=== PATIENT | female | born 1965 | race Caucasian/White ===

== ENCOUNTER 2018-02-05 17:26 | Emergency (ER) | payer MEDICAID, SELFPAY ==
[2018-02-05 17:28] VITALS: BP 121/80; PULSE 69; RESP 18; TEMP 37; O2SAT 97; BMI 22.3
[2018-02-05 18:16] LABS: Absolute Lymphocyte Count 2.36 X10^3/ul (0.83-4.51); Absolute Neutrophil Count 3.1 X10^3/uL (2.0-7.7); Basophil# 0.05 X10^3/uL; Basophil% 0.8 % (0-1); Eosinophil# 0.26 X10^3/uL; Eosinophils% 4.1 % (0-5); Hematocrit 47.6 % (37-47); Hemoglobin 16.6 g/dl (12.0-15.0); Lymphocyte # 2.36 X10^3/ul (4.0); Lymphocyte % 37.4 % (19-41); Mean Corp Hgb Conc 34.9 g/gl (32-36); Mean Corpuscular Hgb 31.4 pg (27.0-32.0); Mean Corpuscular Volume 90.2 fL (81-99); Mean Platelet Vol. 9.3 fl (6.2-12.0); Monocyte# 0.51 X10^3/uL; Monocyte% 8.1 % (0-10); Neutrophil # 3.12 X10^3/uL (2.7-7.7); Neutrophil % 49.4 % (47-70); Platelet Count 262 K/mm3 (150-450); RBC Distribution Width CV 13.9 % (11.6-14.6); RBC Distribution Width SD 46.1 fl (35.1-43.9); Red Blood Count 5.28 M/mm3 (4.2-5.4); White Blood Count 6.3 K/mm3 (4.4-11.0)
[2018-02-05 18:25] LABS: POSITIVE COUNT NO; POSITIVE DIFFERENTIAL NO; POSITIVE MORPHOLOGY NO
[2018-02-05 18:30] LABS: Anion Gap 5 (5-15); BUN 11 mg/dL (7-18); BUN/Creat Ratio 13.1 RATIO (10-20); Chloride 107 mmol/L (98-107); Creatinine, Serum 0.84 mg/dL (0.55-1.02); EST Glomerular Filtration Rate 75 mL/min (>60); Est Glom Filt Rate - Afr Amer 91 mL/min (>60); Estimated Creatinine Clearance 60.55 ml/min; Glucose 87 mg/dL (74-106); Potassium 3.9 mmol/L (3.5-5.1); Sodium Level 140 mmol/L (136-145)
[2018-02-05] MEDS: 0.9% Normal Saline 1,000 ML 125 ML IV (18:36)
[2018-02-05 18:41] VITALS: BP 103/70; BP 116/70; BP 123/76; PULSE 63; PULSE 64; PULSE 65
--- NOTE | 2018-02-05 19:41 | ED.VISSUMM ---
- ER Visit Summary Date of Service: 02/05/18 Chief Complaint: [Rectal bleeding] History of Present Illness: The patient is a 52 F [presents to the emergency department with rectal bleeding that started 3 days ago. Patient's had about 2 episodes per day of bright red blood per rectum that looks like a menstrual period. Patient denies any abdominal pain. Patient denies fever. Patient states that she felt somewhat lightheaded today and became concerned. Patient's only had one episode of bleeding today. Patient states that she has never had a colonoscopy. There is no family history of colon cancer.] Physical Examination: [HEENT-PERRLA, EOMI. Cranial nerves II through XII grossly intact. TMs clear. Mucous membranes moist. No adenopathy. Cardiovascular-regular rate and rhythm without murmur or ectopy Lungs-clear to auscultation, chest wall stable without crepitus or subcu emphysema Abdomen-normoactive bowel sounds, soft, nontender, no rebound or rigidity, no peritoneal signs. Rectal exam-no fissures or hemorrhoids noted. No rectal masses palpated. There was no stool in the rectal vault however Hemoccult tested positive. Extremities-intact ?4, normal range of motion, normal pulses, atraumatic] Test Results: [CBC with differential obtained showed a white count of 6.3, hemoglobin 16.6, hematocrit 47.6, platelets 262. Chemistries unremarkable. Orthostatic vital signs were negative] Emergency Department Course and Treatment: [Patient received IV fluid] Treatment Plan: [Patient case was discussed with Dr. Ksenia Nicole who agreed to see the patient in follow-up and schedule colonoscopy.] Disposition: [Discharged home in stable condition. Patient advised to return if persistent or heavy bleeding. If patient should get lightheaded or dizzy. Fever, or condition should worsen in any way.] Impression: [Rectal bleeding lower-stable] This note was generated with [employer] dictation software. It may contain incorrect words, spelling, and punctuation that were not noted in review of the chart prior to signing ED Disposition - Plan for ED Patient: Chief Complaint: GI Bleed Referrals: Care Physician,No Primary [Primary Care Provider] -
--- NOTE | 2018-02-05 19:48 | ED.DCSUM_ITS ---
- ER Visit Summary Date of Service: 02/05/18 Chief Complaint: [Rectal bleeding] History of Present Illness: The patient is a 52 F [presents to the emergency department with rectal bleeding that started 3 days ago. Patient's had about 2 episodes per day of bright red blood per rectum that looks like a menstrual period. Patient denies any abdominal pain. Patient denies fever. Patient states that she felt somewhat lightheaded today and became concerned. Patient' s only had one episode of bleeding today. Patient states that she has never had a colonoscopy. There is no family history of colon cancer.] Physical Examination: [HEENT-PERRLA, EOMI. Cranial nerves II through XII grossly intact. TMs clear. Mucous membranes moist. No adenopathy. Cardiovascular-regular rate and rhythm without murmur or ectopy Lungs-clear to auscultation, chest wall stable without crepitus or subcu emphysema Abdomen-normoactive bowel sounds, soft, nontender, no rebound or rigidity, no peritoneal signs. Rectal exam-no fissures or hemorrhoids noted. No rectal masses palpated. There was no stool in the rectal vault however Hemoccult tested positive. Extremities-intact ?4, normal range of motion, normal pulses, atraumatic] Test Results: [CBC with differential obtained showed a white count of 6.3, hemoglobin 16.6, hematocrit 47.6, platelets 262. Chemistries unremarkable. Orthostatic vital signs were negative] Emergency Department Course and Treatment: [Patient received IV fluid] Treatment Plan: [Patient case was discussed with Dr. Ksenia Nicole who agreed to see the patient in follow-up and schedule colonoscopy.] Disposition: [Discharged home in stable condition. Patient advised to return if persistent or heavy bleeding. If patient should get lightheaded or dizzy. Fever, or condition should worsen in any way.] Impression: [Rectal bleeding lower-stable] This note was generated with [employer] dictation software. It may contain incorrect words, spelling, and punctuation that were not noted in review of the chart prior to signing ED Disposition - Plan for ED Patient: Chief Complaint: GI Bleed Referrals: Care Physician,No Primary [Primary Care Provider] -
--- NOTE | 2018-02-05 19:48 | ED.DEP ---
ED Disposition - Plan for ED Patient: Chief Complaint: GI Bleed Instructions: ED Hematochezia Stable Referrals: Care Physician,No Primary [Primary Care Provider] - Ksenia Nicole MD [STAFF PHYSICIAN] - 3-5 Days
[2018-02-05 19:59] VITALS: BP 119/78; PULSE 61; RESP 16; O2SAT 99
== END 2018-02-05 20:00 | disposition home or self-care (01) ==
PROVIDERS: Emergency Provider Emergency Medicine
DX: K62.5 Hemorrhage of anus and rectum (principal); Z72.0 Tobacco use
CPT/HCPCS: 80048; 82274; 85025; 96360; 99285; J7030; A4216

== ENCOUNTER 2020-01-24 21:48 | Emergency (ER) | payer MEDICAID, SELFPAY ==
[2020-01-24 21:48] VITALS: BP 149/91; PULSE 89; RESP 18; TEMP 36.4; O2SAT 97; BMI 23.6
[2020-01-24 21:58] VITALS: PULSE 88; RESP 21; O2SAT 98
--- NOTE | 2020-01-24 22:01 | ED.DCSUM_ITS ---
History of Present Illness Chief Complaint: Chest Pain Informant: Patient Onset: Weeks - 1 week per my review/history and longer per triage. Context: Sudden Onset Timing: Intermittent Quality: Sharp stabbing left anterior chest that is intermittent and occurs at rest Location: Left anterior chest Current Severity: - - None Maximum Severity: Moderate Worsened by: Nothing Relieved by: Nothing Associated Symptoms: No nausea, vomiting, diaphoresis or dyspnea. Reports fee ling flushed Narrative: Patient is a 54-year-old woman has not seen a physician in 20 years who presents to the emergency department with left-sided intermittent chest pain that started 1 to greater than 1 week ago. Intermittent sharp stabbing pain that has occurred at rest. Not associated with eating, change in position or activity. Does report feeling flushed and then has tremors. She denies diaphoresis, shortness of breath or nausea or vomiting. She states she feels she cannot get a complete breath when she has the pain. She denies history of VTE. She denies leg pain, swelling discoloration. She denies black or maroon stool. She is a smoker. She reports having pneumonia in the past. The pain is not pleuritic. She does not have diagnosis of COPD. She has no risk factors. Prior similar symptoms: No Recent Illness/Hospitalization: No - Past Medical History (1) Tobacco use Status: Acute Past Medical History - Allergies and Home Meds Allergies/Adverse Reactions: Allergies No Known Allergies Allergy (Verified 01/24/20 22:03) Primary Care Physician: Care Physician,No Primary [Primary Care Provider] - Prior records reviewed: No Past Medical History: None Surgical History: - - Tubal ligation Lives: Alone Smoking Status: Current every day smoker Alcohol: Rare Drugs: None Review of Systems General: Denies: Chills, Fever, Sweats Eyes: Denies: Visual changes - bilaterally, Blurred Vision - bilaterally, Diplopia ENT: Denies: Rhinorrhea, Sore throat Cardiovascular: Reports: Chest pain. Denies: Palpitations, Heart racing Respiratory: Denies: Dyspnea, Cough, Sputum, Dyspnea on exertion, Orthopnea, Paroxysmal nocturnal dyspnea, -, - Gastrointestinal: Denies: Abdominal pain, Nausea, Vomiting, Diarrhea, Melena, Hematochezia Genitourinary: Denies: Dysuria, Hematuria, Frequency Musculoskeletal: Denies: Myalgias, Arthralgias, Neck pain, Back pain, Extremity Pain Skin: Denies: Rash, Wounds Neurological: Denies: Headache, Weakness, Numbness Hematologic: Denies: Easy bruising, Easy bleeding Physical Exam Vital Signs/Narrative: Vital Signs Temp Pulse Resp BP Pulse Ox 01/24/20 21:58 88 21 H 98 01/24/20 21:48 97.5 F L 89 18 149/91 H 97 Inital Vital Signs reviewed: Yes General: Well nourished, Well developed, No Acute Distress Head: Normocephalic, Atraumatic Eyes: Perrl, EOMI ENT: Moist mucous membranes, No rhinorrhea Neck: Supple, Nontender, No lymphadenopathy, No JVD Cardiovascular: Regular rate, Regular rhythm, No murmurs, Normal S1, Normal S2 Respiratory: No distress, CTA bilaterally, Chest nontender Abdomen: Soft, Nontender, Nondistended, Normal bowel sounds Back: Nontender, Normal Inspection. Negative for: CVA tenderness, Spinal tenderness Extremities: Nontender, No edema, - - There is no asymmetry, swelling, discoloration, leg vein distention, palpable cords or tenderness along the distribution of the deep venous system. Skin: Normal color, No rash, No Trauma. Negative for: Cyanosis, Diaphoresis, Jaundice Neurological: Alert, Oriented x3, Cranial nerves II-XII grossly intact, Normal Strength, Normal Sensation, Normal DTR, Normal Gait Psychological: Normal affect, Normal Mood Diagnostic/Tx/Re-eval Chest X-Ray - ED: 2 View, Read by ED Physician, Normal, Heart, Mediastinum, Bony Structures, No Acute Disease, Chronic Changes, - - Chronic interstitial changes noted. There is no evidence of infiltrate, effusion or pneumothorax. X-ray was interpreted by me at 2212. Impressions Chest X-Ray 01/24/20 22:06 IMPRESSION: Normal x-ray examination of the chest. Electronically Signed: Willem Chang MD at 22:20 EDT , Service support , 01/24/20 22:06 Chest PA and Lateral [RAD] Stat Laboratory Results 01/24/20 01/24/20 21:55 21:55 WBC 7.3 RBC 5.29 Hgb 16.1 H Hct 47.4 H MCV 89.6 MCH 30.4 MCHC 34.0 RDW Std Deviation 43.5 RDW Coeff of Macario 13.2 Plt Count 287 MPV 9.4 Immature Gran % (Auto) 0.100 Neut % (Auto) 46.7 L Lymph % (Auto) 40.2 [place]ickory % (Auto) 8.9 Eos % (Auto) 3.0 Baso % (Auto) 1.1 H Absolute Neuts (auto) 3.4 Absolute Lymphs (auto) 2.94 Nucleated RBC % 0 Sodium 140 Potassium 4.0 Chloride 106 Carbon Dioxide 29.0 Anion Gap 5 BUN 13 Creatinine 0.86 Estim Creat Clear Calc 57.77 Est GFR (MDRD) Af Amer 88 Est GFR (MDRD) Non-Af 73 BUN/Creatinine Ratio 15.1 Glucose 105 Calcium 9.2 Troponin I < 0.015 Patient's heart score is 2. Her work-up is negative. She has a atypical presentation for chest pain. Since she has a heart score of 2 and work-up is negative will discharge to home to follow-up with Dr. Coombs who she was assigned to since she is insured without physician. - EKG Initial EKG Interpretation: Sinus Rhythm - AG was performed at 2202. EKG is normal with a normal sinus rhythm and a ventricular rate of 80. AR interval is 136 ms. QRS duration is 100 ms. QT duration 370 ms. [place] is normal. There is artifact because patient is unable to relax and is anxious according to the respiratory therapist who performed EKG. The EKG is otherwise normal. - Medical Decision Making Patient with intermittent left chest pain. Atypical for cardiac. This may represent pulmonary etiology, atypical cardiac, reflux, hiatal hernia, malignan cy. Will obtain EKG, chest x-ray and appropriate blood work. No treatment was initiated since patient is presently pain-free. Patient was informed the cause of her pain is unknown. She was informed that based on history physical and work-up the significant things that one needs to rule out have been ruled out. ED Disposition - Plan for ED Patient: Disposition: Home or Assisted Living Diagnosis: Left-sided chest pain, Tobacco use Instructions: ED Chest Pain NonCardiac Referrals: Care Physician,No Primary [Primary Care Provider] - Fernando Coombs MD [STAFF PHYSICIAN] - 3-5 Days
--- NOTE | 2020-01-24 22:01 | EKG12_ITS ---
Test Reason : CP Blood Pressure : / mmHG Vent. Rate : 080 BPM Atrial Rate : 080 BPM P-R Int : 136 ms QRS Dur : 100 ms QT Int : 370 ms P-R-T Axes : 017 -07 007 degrees QTc Int : 426 ms Normal sinus rhythm Normal ECG Confirmed by BELLE ALMODOVAR, GLADYS ([id number]), multimedia editor RUI PUTNAM ([id number]) on 01/27/2020 3:59:49 PM Referred By: ROLY Confirmed By:GLADYS ODONNELL MD
[2020-01-24 22:02] VITALS: O2SAT 98
--- NOTE | 2020-01-24 22:06 | RAD_ITS ---
STUDY: X-RAY CHEST REASON FOR EXAM: Female, 54 years old. CHEST PAIN WITH SOB TECHNIQUE: PA and lateral COMPARISON: Jan 20 2013 FINDINGS: The lungs are clear and expanded. There is no demonstrated pleural abnormality. Normal size heart. Normal mediastinum and consuelo. Normal visualized pulmonary arteries. Normal visualized aortic arch and descending thoracic aorta. Normal visualized thoracic spine. Normal visualized ribs, clavicles, and shoulders. There is no demonstrated abnormality of the visualized soft tissue structures of the upper abdomen. RAD/Chest PA and Lateral IMPRESSION: Normal x-ray examination of the chest. Electronically Signed: Willem Chang MD at 22:20 EDT , Service support ,
[2020-01-24 22:12] LABS: Absolute Lymphocyte Count 2.94 X10^3/uL (0.83-4.51); Absolute Neutrophil Count 3.4 X10^3/uL (2.0-7.7); Basophil# 0.08 X10^3/uL; Basophil% 1.1 % (0-1); Eosinophil# 0.22 X10^3/uL; Hematocrit 47.4 % (37-47); Hemoglobin 16.1 g/dL (12.0-15.0); Lymphocyte # 2.94 X10^3/ul (4.0); Lymphocyte % 40.2 % (19-41); Mean Corpuscular Hgb 30.4 pg (27.0-32.0); Mean Corpuscular Volume 89.6 fL (81-99); Mean Platelet Vol. 9.4 fl (6.2-12.0); Monocyte# 0.65 X10^3/uL; Monocyte% 8.9 % (0-10); NRBC Flagged by Analyzer 0 % (0-5); Neutrophil # 3.41 X10^3/uL (2.7-7.7); Neutrophil % 46.7 % (47-70); Platelet Count 287 K/mm3 (150-450); RBC Distribution Width CV 13.2 % (11.6-14.6); RBC Distribution Width SD 43.5 fl (35.1-43.9); Red Blood Count 5.29 M/mm3 (4.2-5.4); White Blood Count 7.3 K/mm3 (4.4-11.0)
[2020-01-24 22:31] LABS: Anion Gap 5 (5-15); BUN 13 mg/dL (7-18); BUN/Creat Ratio 15.1 RATIO (10-20); Calcium,Total 9.2 mg/dL (8.5-10.1); Chloride 106 mmol/L (98-107); Creatinine, Serum 0.86 mg/dL (0.55-1.02); EST Glomerular Filtration Rate 73 mL/min (>60); Est Glom Filt Rate - Afr Amer 88 mL/min (>60); Estimated Creatinine Clearance 57.77 ml/min; Glucose 105 mg/dL (74-106); Sodium Level 140 mmol/L (136-145)
[2020-01-24 22:42] VITALS: BP 143/70; PULSE 74; RESP 16; O2SAT 97
== END 2020-01-24 22:42 | disposition home or self-care (01) ==
PROVIDERS: Emergency Provider Emergency Medicine
DX: R07.9 Chest pain, unspecified (principal); F17.200 Nicotine dependence, unspecified, uncomplicated
CPT/HCPCS: 71046; 80048; 84484; 85025; 93005; 99285; A4216

== ENCOUNTER 2020-04-27 16:01 | Emergency (ER) | payer MEDICAID, SELFPAY ==
[2020-04-27 16:03] VITALS: BP 138/90; PULSE 79; RESP 17; TEMP 37.3; O2SAT 95; BMI 22.8
--- NOTE | 2020-04-27 17:18 | ED.VIS.GEN ---
History of Present Illness Chief Complaint: Fever Informant: Patient Narrative: D4-year-old female presenting with multiple complaints. She states that she has been having intermittent chest pain that is sharp in nature for a couple of months. She was seen and evaluated for this a few months ago and stated that everything was normal. Today she also complains that she has had subjective fevers and chills at home. She does complain of bilateral ear pain and drainage from the right ear. She was trying to seek out a physician today to address the issue with the ears and mentioned her chest pain and she was sent to the ER. Patient states that her only is PTSD, but admits that she has not been to a primary physician in many years. Past Medical History - Allergies and Home Meds Allergies/Adverse Reactions: Allergies No Known Allergies Allergy (Verified 04/27/20 16:02) Primary Care Physician: Nestor Joe MD [STAFF PHYSICIAN] - Care Physician,No Primary [Primary Care Provider] - Prior records reviewed: Yes Past Medical History: - - PTSD Surgical History: - - Tubal ligation Smoking Status: Current every day smoker Alcohol: None Drugs: None Review of Systems General: Reports: Chills, Fever Eyes: Denies: Visual changes - bilaterally, Diplopia ENT: Reports: - - Tiny black dots under her tongue. Bilateral ear pain with drainage from the right ear Cardiovascular: Reports: Chest pain Respiratory: Reports: Cough - Chronic smoker's cough unchanged. Denies: Dyspnea Gastrointestinal: Denies: Abdominal pain, Nausea Genitourinary: Denies: Dysuria, Hematuria Musculoskeletal: Reports: Myalgias Skin: Denies: Rash, Abscess Neurological: Denies: Headache Psych: Denies: Depression, Anxiety Physical Exam Vital Signs/Narrative: Vital Signs Temp Pulse Resp BP Pulse Ox 04/27/20 16:03 99.2 F H 79 17 138/90 H 95 Inital Vital Signs reviewed: Yes General: Well nourished, No Acute Distress Head: Normocephalic, Atraumatic Eyes: Perrl, EOMI. Negative for: Scleral icterus ENT: - - Punctate barely visible black dots on the underside of her tongue. These are nontender to palpation. There is erythema of the bilateral external auditory canals with pain with movement of the tragus bilaterally. The right TM is erythematous. There is drainage from the right ear canal. There is no obvious perforation noted. Neck: Supple, Nontender Cardiovascular: Regular rate, Regular rhythm, No murmurs Respiratory: No distress, CTA bilaterally Extremities: Nontender, No edema Skin: Normal color, No rash Neurological: Alert, Oriented x3 Psychological: Normal affect Diagnostic/Tx/Re-eval - Rhythm Strip Rhythm Strip: Sinus Rhythm Rate: 69 - EKG Initial EKG Interpretation: Sinus Rhythm, No Acute Injury Pattern - Medical Decision Making 54-year-old female presenting with multiple complaints she states he really came today because she was concerned that she had an ear infection in the right ear because she said drainage as well as pain in the external auditory canals. On examination she does have drainage from the right ear although I did not identify a perforation. She does have bilateral otitis externa as well. Patient also complained of some intermittent sharp pains in her chest. She states he is previously been seen in the emergency room for these pains. She was trying to get follow-up today with her primary care physician but when she mentioned the pains they sent her to the ER. She has no associated symptoms with these pains. They have not changed. Does not sound cardiac in nature. Her d-dimer is negative. Her labs are within normal limits. Troponin is normal. EKG shows sinus rhythm without signs of ischemia. Chest x-ray is negative. Given that she has a fever she was tested for COVID?19. She will self quarantine, but is given strict return precautions if symptoms worsen.. I do not believe this patient needs repeat labs and EKG. I will treat her otitis media and otitis externa and she can follow-up with her PCP outpatient. Patient amenable to this plan. Patient stable for discharge at this time. Impression: 1. Atypical chest pain 2. Lateral otitis externa 3. Otitis media 4. History of fever 5. Possible exposure to COVID?19 ED Disposition - Plan for ED Patient: Disposition: Home or Assisted Living Instructions: ED Otitis Media Antibiotic Treatment Adult, ED Otitis Externa, ED Chest Pain Atypical Unkn Cause Prescriptions: Amox/Clavulanate Tablet [Augmentin Tablet] 875 mg PO Q12H #20 tab Prescription Printed Ciprofloxacin HCl/Dexameth [Ciprodex Otic Suspension] 4 drp OTIC (EAR) BID 10 Days #2 bottle Prescription Printed Referrals: Care Physician,No Primary [Primary Care Provider] - Nestor Joe MD [STAFF PHYSICIAN] -
--- NOTE | 2020-04-27 17:34 | EKG12_ITS ---
Test Reason : Blood Pressure : / mmHG Vent. Rate : 069 BPM Atrial Rate : 069 BPM P-R Int : 146 ms QRS Dur : 096 ms QT Int : 412 ms P-R-T Axes : 071 015 055 degrees QTc Int : 441 ms Normal sinus rhythm Normal ECG Confirmed by KASSIE ALMODOVAR, JAN ([id number]), pictures editor ANDREY VALDIVIA ([id number]) on 05/05/2020 11:16:29 A M Referred By: RADHA Confirmed By:TERRY FERNANDO MD
[2020-04-27] MEDS: Aspirin 81 MG TAB.CHEW 324 MG PO (17:50)
[2020-04-27] MEDS: 0.9% Normal Saline 1,000 ML 1000 ML IV (17:50)
--- NOTE | 2020-04-27 18:00 | RAD_ITS ---
STUDY: X-RAY CHEST REASON FOR EXAM: Female, 54 years old. PT C/O FEVER, CHILLS, BILATERAL EAR PAIN WITH DRAINAGE, AND SOB TECHNIQUE: Single frontal view of the chest. COMPARISON: 01/20/2013 FINDINGS: The lungs are clear and expanded. There is no demonstrated pleural abnormality. Normal size heart. Normal mediastinum and consuelo. Normal visualized pulmonary arteries. Normal visualized aortic arch and descending thoracic aorta. Normal visualized thoracic spine. Normal visualized ribs, clavicles, and shoulders. There is no demonstrated abnormality of the visualized soft tissue structures of the upper abdomen. RAD/Chest 1 View (Portable) IMPRESSION: Normal x-ray examination of the chest. Electronically Signed: Thor Aldridge MD at 18:21 EDT Tel , Service support ,
[2020-04-27 18:07] LABS: Absolute Neutrophil Count 5.8 X10^3/uL (2.0-7.7); Basophil# 0.09 X10^3/uL; Basophil% 0.9 % (0-1); Eosinophil# 0.17 X10^3/uL; Eosinophils% 1.8 % (0-5); Hematocrit 48.8 % (37-47); Hemoglobin 16.3 g/dL (12.0-15.0); Lymphocyte % 29.3 % (19-41); Mean Corp Hgb Conc 33.4 g/dL (32-36); Mean Corpuscular Hgb 29.9 pg (27.0-32.0); Mean Corpuscular Volume 89.5 fL (81-99); Mean Platelet Vol. 9.1 fl (6.2-12.0); Monocyte# 0.73 X10^3/uL; Monocyte% 7.6 % (0-10); NRBC Flagged by Analyzer 0 % (0-5); Neutrophil # 5.75 X10^3/uL (2.7-7.7); Neutrophil % 60.2 % (47-70); Platelet Count 255 K/mm3 (150-450); RBC Distribution Width CV 13.4 % (11.6-14.6); RBC Distribution Width SD 43.5 fl (35.1-43.9); Red Blood Count 5.45 M/mm3 (4.2-5.4); White Blood Count 9.6 K/mm3 (4.4-11.0)
[2020-04-27 18:23] LABS: D-Dimer Quantitative (DVT/PE) < 0.27 FEU/ug/m (0.27-0.49)
[2020-04-27 18:35] LABS: Anion Gap 3 (5-15); BUN 14 mg/dL (7-18); Chloride 109 mmol/L (98-107); Creatinine, Serum 0.64 mg/dL (0.55-1.02); EST Glomerular Filtration Rate 102 mL/min (>60); Est Glom Filt Rate - Afr Amer 124 mL/min (>60); Estimated Creatinine Clearance 77.63 ml/min; Glucose 103 mg/dL (74-106); Potassium 3.9 mmol/L (3.5-5.1); Sodium Level 138 mmol/L (136-145)
[2020-04-27 19:11] VITALS: BP 136/87; PULSE 73; RESP 16; O2SAT 98
[2020-04-27 19:54] VITALS: BP 136/87; PULSE 73; RESP 16; O2SAT 98
[2020-04-27] MEDS: Amox/Clavulanate 875 MG Tablet PO (20:07)
== END 2020-04-27 20:12 | disposition home or self-care (01) ==
PROVIDERS: Emergency Provider Student in an Organized Health Care Education/Training Program
DX: R07.89 Other chest pain (principal); H60.90 Unspecified otitis externa, unspecified ear; H66.90 Otitis media, unspecified, unspecified ear; F17.200 Nicotine dependence, unspecified, uncomplicated
CPT/HCPCS: 71045; 80048; 84484; 85025; 85379; 93005; 99285; J7030; A4216

== ENCOUNTER 2020-08-16 18:01 | Emergency (ER) | payer MEDICAID, SELFPAY ==
[2020-08-16 18:01] VITALS: BP 132/89; PULSE 91; RESP 18; TEMP 36.4; O2SAT 98; BMI 23.0
[2020-08-16 18:43] VITALS: BP 132/89; PULSE 91; RESP 18; TEMP 36.4; O2SAT 98
--- NOTE | 2020-08-16 19:19 | EKG12_ITS ---
Test Reason : BACK PAIN Blood Pressure : / mmHG Vent. Rate : 071 BPM Atrial Rate : 071 BPM P-R Int : 148 ms QRS Dur : 088 ms QT Int : 396 ms P-R-T Axes : 070 006 059 degrees QTc Int : 430 ms Normal sinus rhythm Normal ECG Confirmed by YAEL ALMODOVAR, MIRNA ([id number]), editorial writer ANDREY VALDIVIA ([id number]) on 08/18/2020 2:08:23 PM Referred By: RADHA Confirmed By:MIRNA CONLEY MD
--- NOTE | 2020-08-16 19:20 | ED.VISSUMM ---
- ER Visit Summary Date of Service: 08/16/20 Chief Complaint: Left thoracic pain History of Present Illness: The patient is a 54 F who presents with left thoracic pain that is gradually gotten worse over the past 5 months. Patient describes the pain is sharp and stabbing. Patient states the pain was localized to her posterior thoracic area on the left. Patient states that recently the pain started radiating to her left arm and around to her left chest. Patient states nothing makes it worse. Patient states that improves with ibuprofen. Patient states it is worse when she first wakes up. Patient states her sister told her that it could be a blood clot and she needs to come to the emergency department to get that checked out. Physical Examination: Vital signs are stable. Patient is afebrile. Patient is in no acute distress. Oral mucosa is pink and moist. Neck is supple. Trachea is midline. There is no JVD noted. Heart was regular rate and rhythm. Lungs are clear but slightly diminished bilaterally. Respiratory effort is limited secondary to pain. There is tenderness over the left lateral chest wall. Abdomen is soft. Bowel sounds are normal. There is no tenderness. There is no rebound or guarding noted. Skin is warm dry. Cranial nerves II through XII are intact. There are no focal motor or sensory deficits noted. Extremities are intact. There is no calf tenderness or edema. Test Results: EKG was obtained. On my interpretation, there is a normal sinus rhythm with a rate of 71. There are no acute ST or T wave changes. This was unchanged compared to previous EKG dated 04/27/2020. CBC and basic metabolic profile were obtained and were within normal limits. D-dimer was normal. Troponin was normal. Portable 1 view chest x-ray was obtained. On my interpretation, lung willoughby are clear. There is normal cardiac silhouette. Bony thorax is normal. There is no acute process noted. Radiologist also interpreted the x-ray in degrees. Emergency Department Course and Treatment: Patient was feeling better on reevaluation. Patient was advised of her findings. Patient has a HEART score of 2. Patient was advised that this is low risk for acute cardiac event. Patient was advised that this may be musculoskeletal in etiology especially since it has been constant for the past 5 months. Patient was instructed to take Tylenol or ibuprofen as needed for pain. Patient was instructed to follow-up with her primary care physician in 5 to 7 days for further evaluation. Patient understood and was agreeable with the plan. All questions were answered. Disposition: Discharge home Impression: 1. Chest pain of uncertain etiology This note was generated with [employer] dictation software. It may contain incorrect words, spelling, and punctuation that were not noted in review of the chart prior to signing ED Disposition - Plan for ED Patient: Disposition: Home or Assisted Living Diagnosis: Chest pain of uncertain etiology Instructions: ED Chest Pain, Uncertain Cause Referrals: Darell Shell MD [NON-STAFF] - 5-7 Days
[2020-08-16] MEDS: Aspirin 81 MG TAB.CHEW 324 MG PO (19:35)
[2020-08-16 19:44] VITALS: O2SAT 97
[2020-08-16 20:00] LABS: Absolute Neutrophil Count 2.9 X10^3/uL (2.0-7.7); Basophil# 0.06 X10^3/uL; Eosinophil# 0.22 X10^3/uL; Eosinophils% 3.5 % (0-5); Hematocrit 46.5 % (37-47); Lymphocyte % 41.5 % (19-41); Mean Corp Hgb Conc 34.4 g/dL (32-36); Mean Corpuscular Hgb 30.4 pg (27.0-32.0); Mean Corpuscular Volume 88.4 fL (81-99); Mean Platelet Vol. 9.5 fl (6.2-12.0); NRBC Flagged by Analyzer 0 % (0-5); Neutrophil # 2.89 X10^3/uL (2.7-7.7); Platelet Count 292 K/mm3 (150-450); RBC Distribution Width CV 13.2 % (11.6-14.6); RBC Distribution Width SD 42.9 fl (35.1-43.9); Red Blood Count 5.26 M/mm3 (4.2-5.4); White Blood Count 6.3 K/mm3 (4.4-11.0)
[2020-08-16 20:01] LABS: D-Dimer Quantitative (DVT/PE) < 0.27 FEU/ug/m (0.27-0.49)
[2020-08-16 20:06] LABS: Anion Gap 4 (5-15); BUN 13 mg/dL (7-18); BUN/Creat Ratio 19.3 RATIO (10-20); Chloride 109 mmol/L (98-107); Creatinine, Serum 0.67 mg/dL (0.55-1.02); EST Glomerular Filtration Rate 96 mL/min (>60); Est Glom Filt Rate - Afr Amer 116 mL/min (>60); Estimated Creatinine Clearance 74.15 ml/min; Glucose 95 mg/dL (74-106); Potassium 4.1 mmol/L (3.5-5.1); Sodium Level 142 mmol/L (136-145)
--- NOTE | 2020-08-16 20:12 | RAD_ITS ---
STUDY: X-RAY CHEST REASON FOR EXAM: Female, 54 years old. Left-sided pain TECHNIQUE: Frontal view of the chest COMPARISON: 04/27/20 FINDINGS: The lungs are clear. There are no pleural effusions. There is no pneumothorax. The heart is normal in size. The visualized osseous structures are within normal limits. RAD/Chest 1 View (Portable) IMPRESSION: No acute thoracic pathology. Electronically Signed: Mele Rosales, at 20:28 EST Tel , Service support ,
[2020-08-16 20:26] VITALS: BP 99/75; PULSE 72; RESP 18; O2SAT 95
== END 2020-08-16 21:42 | disposition home or self-care (01) ==
PROVIDERS: Emergency Provider Emergency Medicine
DX: R07.9 Chest pain, unspecified (principal); F17.200 Nicotine dependence, unspecified, uncomplicated
CPT/HCPCS: 71045; 80048; 84484; 85025; 85379; 93005; 99284; A4216

== ENCOUNTER → 2021-06-04 18:39 | Outpatient (CLI) | payer MEDICAID, SELFPAY | PROVIDERS: Referring Provider Physician Assistant Surgical; Visit Provider Physician Assistant Surgical | DX: Z20.822 Contact with and (suspected) exposure to COVID-19 (principal) | CPT/HCPCS: 87635; U0005; U0003 ==

== ENCOUNTER 2024-12-15 17:40 | Emergency (ER) | payer MEDICAID, SELFPAY ==
[2024-12-15] VITALS (8 sets, daily range): BP systolic 115–142; BP diastolic 77–92; PULSE 71–95; RESP 14–20; TEMP 36.2–37.1; O2SAT 94–96; BMI 23.8
--- NOTE | 2024-12-15 17:45 | EKG12_ITS ---
Test Reason : DYSRHYTHMIA Blood Pressure : */* mmHG Vent. Rate : 74 BPM Atrial Rate : 74 BPM P-R Int : 118 ms QRS Dur : 84 ms QT Int : 362 ms P-R-T Axes : 76 -14 66 degrees QTcB Int : 401 ms Normal sinus rhythm Cannot rule out Inferior infarct , age undetermined Abnormal ECG Confirmed by YAEL ALMODOVAR, MIRNA ([id number]), website/blog editor ANDREY VALDIVIA ([id number]) on 12/16/2024 8:41:52 AM Referred By: Confirmed By: MIRNA CONLEY MD
[2024-12-15 18:04] LABS: Absolute Lymphocyte Count 4.26 X10^3/uL (0.83-4.51); Basophil# 0.06 X10^3/uL; Basophil% 0.4 % (0-1); Eosinophil# 0.14 X10^3/uL; Eosinophils% 0.9 % (0-5); Hematocrit 49.5 % (37-47); Hemoglobin 17.1 g/dL (12.0-15.0); Lymphocyte # 4.26 X10^3/ul (0.83-4.51); Lymphocyte % 28.9 % (19-41); Mean Corp Hgb Conc 34.5 g/dL (32-36); Mean Corpuscular Hgb 29.5 pg (27.0-32.0); Mean Corpuscular Volume 85.5 fL (81-99); Mean Platelet Vol. 9.5 fl (6.2-12.0); Monocyte# 1.12 X10^3/uL; Monocyte% 7.6 % (0-10); NRBC Flagged by Analyzer 0 % (0-5); Neutrophil # 9.04 X10^3/uL (2.7-7.7); Neutrophil % 61.4 % (47-70); Platelet Count 379 K/mm3 (150-450); RBC Distribution Width CV 13.5 % (11.6-14.6); RBC Distribution Width SD 41.7 fl (35.1-43.9); Red Blood Count 5.79 M/mm3 (4.2-5.4); White Blood Count 14.7 K/mm3 (4.4-11.0)
[2024-12-15 18:36] LABS: Anion Gap 12 (5-15); BUN 24 mg/dL (4-19); BUN/Creat Ratio 31.9 RATIO (10-20); Carbon Dioxide 27.1 mmol/L (21.0-32.0); Chloride 101 mmol/L (98-108); Creatinine, Serum 0.76 mg/dL (0.70-1.20); EST Glomerular Filtration Rate 90 (>60); Estimated Creatinine Clearance 61.48 ml/min (50-250); Glucose 172 mg/dL (70-99); Potassium 2.8 mmol/L (3.3-5.1); Sodium Level 140 mmol/L (133-145)
[2024-12-15 19:59] LABS: D-Dimer Quantitative (DVT/PE) 0.84 FEU/ug/m (0.27-0.49)
--- NOTE | 2024-12-15 20:05 | CT_ITS ---
PROCEDURE: CTA CHEST W/WO CONTRAST 12/15/2024 REASON FOR EXAM: DYSPNEA, ELEVATED DIMER TECHNIQUE: CTA axial imaging of the chest with intravenous contrast. Coronal and Sagittal reconstruction series were provided. 3D, 3D post processing, 3D reconstructions, Maximum intensity projection (MIPs) Volume rendering and Shaded surface rendering was provided. One or more dose reduction techniques were used (e.g., Automated exposure control, adjustment of the mA and/or kV according to patient size, use of iterative reconstruction technique). CONTRAST: Omnipaque 350 VOLUME: 100 mL Not Provided Gauge IV COMPARISON: None FINDINGS: Hardware: None Lymph nodes: No suspicious adenopathy. Heart: No cardiomegaly. Trace pericardial effusion. No significant coronary artery calcifications. Thoracic Aorta: No thoracic aortic aneurysm or dissection. Pulmonary Vessels: No large central pulmonary emboli are identified. Contrast timing is suboptimal for evaluation of more distal branches. Most Proximal Level of Embolus (if embolus present): Lungs and Airways: Central airways are patent without endobronchial lesions. Diffuse bilateral bronchial wall thickening. Moderate centrilobular and paraseptal emphysema. 4 mm left upper lobe perifissural nodule. Otherwise, no suspicious pulmonary nodule. Few scattered calcified granulomas. No pneumothorax. No pleural effusion. Upper Abdomen: Visualized portions of the upper abdominal viscera are unremarkable. Bones: Degenerative changes of the thoracic spine. CT/CTA Chest W/WO Contrast IMPRESSION: 1. No evidence of acute pulmonary embolism. 2. Moderate upper lobe predominant emphysema. 3. 4 mm left upper lobe indeterminate pulmonary nodule. [facility]
[2024-12-15 20:19] LABS: Troponin T High Sensitivity < 6 ng/L (<=14)
[2024-12-15 21:27] LABS: Magnesium 1.9 mg/dL (1.5-2.2)
[2024-12-15] MEDS: Potassium Chloride Oral Tablet 20 MEQ 40 MEQ PO (21:31)
--- NOTE | 2024-12-15 21:31 | ED.VIS.DYS ---
HPI History of Present Illness Chief Complaint: Shortness of Breath Informant: patient and family Narrative Narrative: Patient presents here family worsening exertional dyspnea and chest tightness. She has had upper respiratory symptoms for the past month. Cough wheeze. [id number] smoker. She went to [facility] approximately [facility]. Put on antibiotic and steroids along with inhaler. Today symptoms not improving exertional chest tightness and dyspnea. No diagnosed COPD or asthma. No cardiac history. Last seen by PCP 5 years ago. Has noted elevated blood pressure at [facility] and at home. Family reports had a pulse ox that was 84% however they are unclear if accurate. Denies recent travel, surgeries, or immobilizations. No history of PE or DVT. Prior similar symptoms: No PFSH PFSH Medical History no medical history Home Medications ?Medication ?Instructions ?Recorded ?Last Taken ?Type potassium chloride 20 mEq 20 meq PO DAILY #7 tabs 12/15/24 Unknown Rx tablet,extended release prednisone 20 mg tablet 60 mg (3 x 20 mg) PO DAILY #12 12/15/24 Unknown Rx TABLETS Allergy/AdvReac Type Severity Reaction Status Date / Time No Known Allergies Allergy Verified 12/15/24 17:41 Social History Smoking Status: Current every day smoker tobacco type: cigarettes ROS ROS ED Constitutional Constitutional ED: Denies chills, fever(s) or sweats ENT ENT ED: Denies sore throat Cardiovascular Cardiovascular: Denies chest pain, leg edema, palpitations or racing heartbeat Respiratory/Chest Respiratory/Chest: Reports cough, dyspnea and dyspnea on exertion Gastrointestinal Gastrointestinal: Denies abdominal pain, diarrhea, nausea or vomiting Genitourinary Genitourinary ED: Denies dysuria, hematuria or urinary frequency Musculoskeletal Musculoskeletal: Denies back pain, extremity pain or neck pain Integumentary Denies rash or wounds Neurologic Neurologic: Denies headache(s), paresthesias or weakness EXAM Physical Exam Const Vital Signs: 12/15/24 17:42 12/15/24 20:07 12/15/24 20:09 Temperature 98.7 F 98.4 F Temperature Source Oral Oral Pulse Rate 95 85 Respiratory Rate 18 20 H Respiratory Effort Respiratory Depth Respiratory Pattern Blood Pressure 138/80 H 115/80 Blood Pressure Mean 99 91 Pulse Ox 95 94 Oxygen Delivery Method Room Air Room Air Room Air 12/15/24 20:09 12/15/24 20:10 12/15/24 21:00 Temperature 97.2 F L Temperature Source Oral Pulse Rate 71 Respiratory Rate 20 H 17 Respiratory Effort Normal Non-Labored Respiratory Depth Normal Respiratory Pattern Normal Blood Pressure 138/87 H Blood Pressure Mean 104 Pulse Ox 94 94 Oxygen Delivery Method Room Air Room Air Room Air 12/15/24 22:00 Temperature 98 F Temperature Source Oral Pulse Rate 77 Respiratory Rate 14 Respiratory Effort Respiratory Depth Respiratory Pattern Blood Pressure 142/92 H Blood Pressure Mean 108 Pulse Ox 96 Oxygen Delivery Method Room Air Positive well nourished and well developed General Appearance ED: well developed and NAD HEENT Reports moist mucous membranes normocephalic and atraumatic Eyes General Eye ED: Yes normal appearance of both eyes Neck full ROM Chest Wall Chest: Negative for tenderness Resp normal respiratory effort and normal air movement Effort and Inspection: symmetric chest movement; Negative for respiratory distress Cardio regular rate, regular rhythm and no murmurs Peripheral Pulses: pulses 2+ throughout GI normal to inspection, nondistended, normoactive bowel sounds and non-tender Palpation: Negative for guarding or rebound tenderness present Extremity normal to inspection General Extremety ED: Negative for edema or tenderness General Extremity: Negative for edema Neuro oriented x3 and no sensory deficits noted Sensorium / Orientation: awake and alert Skin no rashes or lesions noted and no wounds MDM MDM MDM Narrative Medical decision making narrative: Interventions / MDM: Differential diagnosis: bronchitis, emphysema, tobacco dependence Diagnosis considered but do not suspect: Pulm embolism however CT negative. ACS however EKG cardiac enzyme negative. My EKG interpretation: Sinus rate of 74, no ST changes. QTc 401. Imaging independently reviewed and interpreted by myself: CT angiogram chest: No PE: Emphysema changes, pulmonary nodule 4 mm left upper lobe. External documents reviewed: N/A Test considered but not ordered:N/A ED course: Patient worsens or some dyspnea chest tightness recent upper respiratory illness finish antibiotic steroid states not improving. Her vital stable pulse ox 95 on room air. EKG obtained sinus rhythm no acute findings. With exertional dyspnea cardiac workup initiated along with D-dimer. D-dimer elevated 0.84. Initial troponin -0.84. Potassium 2.8. Magnesium added for potassium ordered. 2130: CT scan negative for PE left upper lobe 4 mm nodule emphysema changes noted. Discussed findings with patient and family. White count 14.7 however last dose of steroids yesterday. Magnesium returned at 1.9. Initial troponin less than 6. 2235: Repeat troponin negative. Ambulatory pulse ox maintained at 96%. With emphysema changes reported wheezing at home dyspnea will do additional burst of steroids for 5 days. Other dose given today. Potassium supplement sent to her pharmacy for 7 days discussed increasing vegetables. She is given follow-up with PCP. Discussed strict return precautions. All questions were answered., Pulmonary nodule Re-evaluation: stable Disposition discussed with patient/family/significant other: Patient and family Case discussed with consulting clinician: N/A This note was generated with [employer] dictation software. It may contain incorrect words, spelling, and punctuation that were not noted in checking the note before signing. Lab Data Attestation: I reviewed the patient's lab results. Labs: Laboratory Results - last 24 hr 12/15/24 12/15/24 12/15/24 17:51 19:23 19:25 WBC 14.7 H RBC 5.79 H Hgb 17.1 H Hct 49.5 H MCV 85.5 MCH 29.5 MCHC 34.5 RDW Std Deviation 41.7 RDW Coeff of Macario 13.5 Plt Count 379 MPV 9.5 Immature Gran % (Auto) 0.800 Neut % (Auto) 61.4 Lymph % (Auto) 28.9 Dent % (Auto) 7.6 Eos % (Auto) 0.9 Baso % (Auto) 0.4 Absolute Neuts (auto) 9.0 H Absolute Lymphs (auto) 4.26 Nucleated RBC % 0 D-Dimer Quant (PE/DVT) 0.84 H* Sodium 140 Potassium 2.8 L Chloride 101 Carbon Dioxide 27.1 Anion Gap 12 BUN 24 H Creatinine 0.76 Estim Creat Clear Calc 61.48 Est GFR (MDRD) Non-Af 90 BUN/Creatinine Ratio 31.9 H Glucose 172 H Calcium 9.0 Magnesium 1.9 Troponin T High Sens Troponin T Hi Sens 2 Hr 12/15/24 12/15/24 20:02 22:02 WBC RBC Hgb Hct MCV MCH MCHC RDW Std Deviation RDW Coeff of Macario Plt Count MPV Immature Gran % (Auto) Neut % (Auto) Lymph % (Auto) Dent % (Auto) Eos % (Auto) Baso % (Auto) Absolute Neuts (auto) Absolute Lymphs (auto) Nucleated RBC % D-Dimer Quant (PE/DVT) Sodium Potassium Chloride Carbon Dioxide Anion Gap BUN Creatinine Estim Creat Clear Calc Est GFR (MDRD) Non-Af BUN/Creatinine Ratio Glucose Calcium Magnesium Troponin T High Sens < 6 Troponin T Hi Sens 2 Hr 7 Radiography Diagnostic Testing: Clinical Impression(s) from Imaging Studies Chest CTA 12/15/24 20:05 IMPRESSION: 1. No evidence of acute pulmonary embolism. 2. Moderate upper lobe predominant emphysema. 3. 4 mm left upper lobe indeterminate pulmonary nodule. Reading Location: [facility] Discharge Plan Triage Chief Complaint: Shortness of Breath ED Provider: Tanner Gayle Dx/Rx/DC Orders Clinical Impression: Emphysema lung, Tobacco use, Pulmonary nodule less than 6 mm determined by computed tomography of lung, Hypokalemia Instructions: Emphysema Dc, Hypokalemia Dc, ED Pulmonary Nodule, Solitary Prescriptions: New prednisone 20 mg tablet 60 mg PO DAILY Qty: 12 0RF potassium chloride 20 mEq tablet extended release 20 meq PO DAILY Qty: 7 0RF Primary Care Provider: Care Physician,No Primary Referrals: Thao Ocampo DO [Med Staff - Active Staff] - 1 Week Care Physician,No Primary [Primary Care Provider] - Activity Restrictions/Additional Instructions: Cardiac workup negative. CT chest no PE. emphysema changes with 4 mm left upper lobe nodule. Not too late to stop smoking. Your potassium 2.8. Take potassium supplement as prescribed. Finish prednisone as written for you. Follow-up with family practice for further management and testing as needed. Print Language: Greenlandic Disposition Disposition: Home, Self Care
--- NOTE | 2024-12-15 21:33 | CM.ED ---
Social Work Reason for visit: No PCP Patient verified that she does not currently have a PCP. [facility] physician list provided. No further needs identified at this time. Mariana Hernandez, MEAT APPRENTICE, [employer]TERN
[2024-12-15 22:27] LABS: Troponin T High Sens 2 HR 7 ng/L (<=14)
[2024-12-15] MEDS: predniSONE 20 MG Tablet 60 MG PO (22:31)
== END 2024-12-15 22:54 | disposition home or self-care (01) ==
PROVIDERS: Emergency Provider Emergency Medicine; Visit Provider Emergency Medicine
DX: J43.9 Emphysema, unspecified (principal); R91.1 Solitary pulmonary nodule; E87.6 Hypokalemia; F17.210 Nicotine dependence, cigarettes, uncomplicated
CPT/HCPCS: 71275; 80048; 83735; 84484; 85025; 85379; 93005; 94760; 99284; Q9967; A4216